=== PATIENT | male | born 1995 | race Caucasian/White ===

== ENCOUNTER 2017-05-30 16:19 | Emergency (ER) | payer OTHER ==
[~2017-05-30] VITALS: Ht 175.3 cm; Wt 68.0 kg
[2017-05-30 16:50] VITALS: BP 135/78
[2017-05-30] MEDS ORDERED: CYCL-331 PO (18:09)
--- NOTE | 2017-05-30 18:09 | PHYS DOC ---
Past History Past Medical History: No Pertinent History Past Surgical History: No Surgical History Alcohol Use: None Drug Use: None Adult General Chief Complaint Chief Complaint: KNEE SWELLING HPI HPI Patient is a 21 year old male who presents with complaint of 2 days of pain to the right knee. Patient states that he awoke with the symptoms yesterday and states that they became rapidly worse throughout the day yesterday. The patient was seen at [facility] and had a x-ray taken of the right knee which did not show any evidence of acute fracture. Patient denies any known injury to the knee. Patient states that he has been running but does not report any problems or inciting events during running brought on his pain. Patient rates his pain as 6 out of 10. Patient states the pain runs along the lateral aspect of the right knee up towards mid thigh. Patient states that he is having difficulty completely straightening out the knee secondary to pain. Review of Systems Review of Systems Constitutional: Denies fever or chills [] Eyes: Denies change in visual acuity, redness, or eye pain [] HENT: Denies nasal congestion or sore throat [] Musculoskeletal: Right knee pain[] Integument: Denies rash or skin lesions [] Neurologic: Denies headache, focal weakness or sensory changes [] Allergies Allergies Allergies Coded Allergies Type Severity Reaction Last Updated Verified No Known Drug Allergies 05/30/17 No Physical Exam Physical Exam Constitutional: Well developed, well nourished, no acute distress, non-toxic appearance. [] HENT: Normocephalic, atraumatic, bilateral external ears normal, oropharynx moist, no oral exudates, nose normal. [] Skin: Warm, dry, no erythema, no rash. [] Extremities: No obvious deformity to right knee, palpable tenderness and tightness along right iliotibial band, negative Linnea test, negative Aurelia test, full passive range of motion present. [] Neurologic: Alert and oriented X 3, normal motor function, normal sensory function, no focal deficits noted. [] Current Patient Data Vital Signs Vital Signs Date Time Temp Pulse Resp B/P (MAP) Pulse Ox O2 Delivery O2 Flow Rate FiO2 05/30/17 16:50 97.7 79 20 99 Room Air EKG EKG Not performed[] Radiology/Procedures Radiology/Procedures Not performed[] Course & Med Decision Making Course & Med Decision Making Pertinent Labs and Imaging studies reviewed. (See chart for details) Patient's symptoms appear consistent with iliotibial band syndrome. The patient states that he has physical therapy already scheduled for next week and will be attending. Patient is also taking naproxen which was prescribed to him yesterday. The patient will be given Flexeril to take at nighttime for added pain relief secondary to muscle tightness. Advise follow-up in one week with primary doctor. Patient also provided crutches in the emergency department to assist with ambulation. Advised return emergency department for any worsening symptoms. Patient was understanding and in agreement with treatment plan. Dragon Disclaimer Dragon Disclaimer This chart was dictated in whole or in part using Voice Recognition software in a busy, high-work load, and often noisy Emergency Department environment. It may contain unintended and wholly unrecognized errors or omissions. Departure Departure: Impression: Primary Impression: Iliotibial band syndrome Disposition: HOME, SELF-CARE Condition: STABLE Patient Instructions: Iliotibial Band Syndrome Additional Instructions: Follow-up in one week with your primary doctor if symptoms are not improving. Return to emergency department for any worsening symptoms. Scripts Cyclobenzaprine Hcl (CYCLOBENZAPRINE HCL) 10 Mg Tablet 1 TAB PO QHS Y for MUSCLE PAIN, #15 TAB Prov: ABBEY STOCKTON MD 05/30/17 Problem Qualifiers Primary Impression: Iliotibial band syndrome Laterality: right Qualified Codes: M76.31 - Iliotibial band syndrome, right leg ABBEY STOCKTON MD May 30, 2017 18:09
== END 2017-05-30 18:17 | disposition home or self-care (01) ==
LOC: ER 16:19
DX: M76.31 Iliotibial band syndrome, right leg (principal)
CPT/HCPCS: 99283

== ENCOUNTER 2017-08-30 04:24 | Inpatient (IN) | payer OTHER ==
[~2017-08-30] VITALS: Ht 172.7 cm; Wt 69.9 kg
[~2017-08-30 04:24] MED LIST: CYCL-331 PO
[2017-08-30] MEDS ORDERED: ONDANSETRON ODT 4 MG TAB.RAPDIS ONE (04:35)
[2017-08-30] MEDS ORDERED: IV NORMAL SALINE 1,000ML 1,000 ML IV SCH (04:39)
[2017-08-30] MEDS ORDERED: LORazepam 2 MG/ML VIAL IV ONE (04:45)
[2017-08-30] MEDS ORDERED: LOPERAMIDE 2 MG CAPSULE PO ONE (04:45)
[2017-08-30] MEDS ORDERED: ONDANSETRON PF 4 MG/2 ML VIAL. IV ONE (04:45)
[2017-08-30] MEDS ORDERED: 0.9 % SODIUM CHLORIDE 10 ML DISP.SYRIN. IV PRN (04:45)
--- NOTE | 2017-08-30 04:54 | PHYS DOC ---
Past History Past Medical History: No Pertinent History Past Surgical History: No Surgical History Smoking: Non-smoker Alcohol Use: None Drug Use: None Adult General Chief Complaint Chief Complaint: n/v/d HPI HPI This patient is a 21-year-old male otherwise healthy who began having an immediate reaction to eating some [place] wild wings or "" off. Patient felt nausea and vomiting since about 8:00 tonight. He's had too many episodes to count nonbilious nonbloody emesis, and loose liquidy stool. He's had crampy abdominal pain and some dizziness with the symptoms because he felt he has lost "" so much fluid. Patient denies any fevers, but has had some chills with his symptoms. He denies any sick contacts, travel outside the country, recent antibiotics raw food consumption. Patient works as a guard driver. He denies any blood in stool blood in his vomit denies any significant abdominal pain denies any drug use or trauma. Review of Systems Review of Systems Constitutional: Patient has had subjective fevers and chills Eyes: Denies change in visual acuity, redness, or eye pain [] HENT: Denies nasal congestion or sore throat [] Respiratory: Denies cough or shortness of breath [] Cardiovascular: No additional information not addressed in HPI [] GI: Denies abdominal pain, but he has had significant nausea vomiting and diarrhea without constipation : Denies dysuria or hematuria [] Musculoskeletal: Denies back pain or joint pain [] Integument: Denies rash or skin lesions [] Neurologic: Denies headache, focal weakness or sensory changes [] Endocrine: Denies polyuria or polydipsia [] All other systems were reviewed and found to be within normal limits, except as documented in this note. Current Medications Current Medications Current Medications Medications (Trade) Dose Ordered Sig/Tangela Start Time Stop Time Status Last Admin Dose Admin Loperamide HCl (Imodium) 4 mg 1X ONCE 08/30/17 04:45 08/30/17 04:46 UNV Ondansetron HCl (Zofran Odt) 4 mg STK-MED ONCE 08/30/17 04:35 08/30/17 04:36 DC Ondansetron HCl (Zofran) 4 mg 1X ONCE 08/30/17 04:45 08/30/17 04:46 UNV Sodium Chloride (Normal Saline Flush) 10 ml QSHIFT PRN 08/30/17 04:45 UNV Allergies Allergies Allergies Coded Allergies Type Severity Reaction Last Updated Verified No Known Drug Allergies 05/30/17 No Physical Exam Physical Exam Vital signs recorded on the chart within normal limits Constitutional: Well developed, well nourished, patient looks uncomfortable he is mildly tachypnea on my exam[] HENT: Normocephalic, atraumatic, bilateral external ears normal, oropharynx moist, no oral exudates, nose normal. [] Eyes: PERRLA, EOMI, conjunctiva normal, no discharge. [] Neck: Normal range of motion, no tenderness, supple, no stridor. [] Cardiovascular:Heart rate regular rhythm, no murmur [] Lungs & Thorax: Bilateral breath sounds clear to auscultation [] Abdomen: Hyperactive bowel sounds, no rebound guarding or Davis megaly, no specific Moore's or McBurney's point tenderness to palpation Skin: Warm, dry, no erythema, no rash he has some piloerection secondary to vomiting and chills. [] Back: No tenderness, no CVA tenderness. [] Extremities: No tenderness, no cyanosis, no clubbing, ROM intact, no edema. [] Neurologic: Alert and oriented X 3, normal motor function, normal sensory function, no focal deficits noted. [] Psychologic: Patient seems somewhat anxious but has normal judgment EKG EKG [] Radiology/Procedures Radiology/Procedures [CT abdomen pelvis: No acute surgical pathology per radiology report] Course & Med Decision Making Course & Med Decision Making Pertinent Labs and Imaging studies reviewed. (See chart for details) []Patient is nausea vomiting diarrhea following the consumption of what he calls ""bad food he was given fluids antiemetics and Imodium for symptoms and a small dose of Ativan for his anxiety. As abdomen is soft but we will complete a CMP to ensure that he has not have any signs of renal failure from volume depletion and ensure that his LITES are within normal limits Time is now 5:30 AM patient's CMP is returned it does demonstrate significant dehydration with a creatinine 1.7. Patient has an anion gap of 18 a glucose of 165 with a normal lipase and slightly elevated T bili. Because patient has not been able to urinate at this time I will give another liter fluids to him and repeat a CMP upon both fluids been given to ensure that his renal insufficiency is improved. Laboratory Tests Test 08/30/17 04:49 Sodium Level 141 mmol/L (136-145) Potassium Level 3.8 mmol/L (3.5-5.1) Chloride Level 102 mmol/L (98-107) Carbon Dioxide Level 21 mmol/L (21-32) Anion Gap 18 (6-14) H Blood Urea Nitrogen 18 mg/dL (8-26) Creatinine 1.7 mg/dL (0.7-1.3) H Estimated GFR (Cockcroft-Gault) 52.2 BUN/Creatinine Ratio 11 (6-20) Glucose Level 165 mg/dL (70-99) H Calcium Level 10.0 mg/dL (8.5-10.1) Total Bilirubin 1.5 mg/dL (0.2-1.0) H Aspartate Amino Transferase (AST) 23 U/L (15-37) Alanine Aminotransferase (ALT) 23 U/L (16-63) Alkaline Phosphatase 86 U/L (46-116) Total Protein 8.7 g/dL (6.4-8.2) H Albumin 4.8 g/dL (3.4-5.0) Albumin/Globulin Ratio 1.2 (1.0-1.7) Lipase 159 U/L (73-393) Care assumed at shift change. Patient remains tachycardic with continued nausea , diarrhea and nondescript lower abdominal pain. Noted to have elevated WBC with bandemia along with acute kidney injury. CT abdomen/pelvis ordered. No acute surgical findings noted to be present. Patient give additional IVF and pain medications. Will admit to hospitalist service for continued evaluation and supportive treatment. Courtesy bridge orders provided. Manuel Hayden. Micaela Disclaimer Micaela Disclaimer This electronic medical record was generated, in whole or in part, using a voice recognition dictation system. Departure Departure: Impression: Primary Impression: Nausea and vomiting Additional Impressions: Diarrhea Dehydration Renal insufficiency Disposition: 01 HOME, SELF-CARE Condition: IMPROVED Referrals: PCP,UNKNOWN (PCP) Patient Instructions: Dehydration, Adult, Diarrhea, Nausea and Vomiting Additional Instructions: discharge: I've spoken with the patient and/or caregivers. I've explained the patient's condition, diagnosis and treatment plan based on information available to me at this time. I've answered the patient's and/or caregivers questions and addressed any concerns. The patient and/or caregivers have a good understanding the patient's diagnosis, condition and treatment plan as can be expected at this point. Vital signs have been stabilized. The patient's condition is stable for discharge from the emergency department. The patient will pursue further outpatient evaluation with her primary care provider or other designated consulting physician as outlined in the discharge instructions. Patient and/or caregivers are agreeable to this plan of care and follow-up instructions have been explained in detail. The patient and/or caregivers have received these instructions in written format and expressed understanding of these discharge instructions. The patient and her caregivers are aware that if any significant change in condition or worsening of symptoms should prompt him to immediately return to this of the closest emergency department. If an emergent department is not readily available I would encourage him to call 911. Problem Qualifiers YVON LIM MD Aug 30, 2017 04:54 MANUEL HAYDEN DO Aug 30, 2017 07:43
[2017-08-30 05:18] LABS: ALBUMIN 4.8 g/dL (3.4-5.0); ALBUMIN/GLOBULIN RATIO 1.2 (1.0-1.7); CREATININE 1.7 mg/dL (0.7-1.3); GFR 52.2; POTASSIUM 3.8 mmol/L (3.5-5.1); TOTAL BILIRUBIN 1.5 mg/dL (0.2-1.0); TOTAL PROTEIN 8.7 g/dL (6.4-8.2)
[2017-08-30 05:27] LABS: BASO % 0 % (0-3); EOS % 0 % (0-3); HEMOGLOBIN 19.2 g/dL (13.0-17.5); LYMPH # 0.3 x10^3/uL (1.0-4.8); LYMPH % 2 % (24-48); MEAN CORPUSCULAR HEMOGLOBIN 31 pg (25-35); MEAN CORPUSCULAR HGB CONC 36 g/dL (31-37); MEAN CORPUSCULAR VOLUME 88 fL (79-100); NEUT % 91 % (31-73); PLATELET COUNT 273 x10^3/uL (140-400)
[2017-08-30 05:28] LABS: HEMATOCRIT 54.6 % (39.0-53.0); RED BLOOD COUNT 6.21 x10^6/uL (4.30-5.70); WHITE BLOOD COUNT 16.9 x10^3/uL (4.0-11.0)
[2017-08-30] MEDS ORDERED: ONDANSETRON ODT 4 MG TAB.RAPDIS PO ONE (05:30)
[2017-08-30] MEDS ORDERED: IV NORMAL SALINE 1,000ML 1,000 ML IV ONE (05:30)
[2017-08-30 05:31] LABS: BASO # 0.1 x10^3/uL (0.0-0.2); MONO # 1.1 x10^3/uL (0.0-1.1); MONO % 6 % (0-9); NEUT # 15.4 x10^3uL (1.8-7.7); RED CELL DISTRIBUTION WIDTH 12.3 % (11.5-14.5)
[2017-08-30 05:39] LABS: % BANDS 25 % (0-9); % LYMPHS 3 % (24-48); % METAS 1 % (0-0); % MONOS 6 % (0-10); % SEGS 65 % (35-66); PLT ESTIMATE ADEQUATE (ADEQUATE)
[2017-08-30 05:40] LABS: TOXIC GRANULATION SLIGHT; TOXIC VACUOLATION MOD
[2017-08-30] MEDS ORDERED: MORPHINE SULFATE 4 MG/ML DISP.SYRIN. IV ONE (06:30)
[2017-08-30] MEDS ORDERED: CONTRAST GIVEN MC PRN (07:00)
[2017-08-30] MEDS ORDERED: IOHEXOL 300 MG/ML 75 ML VIAL. IV ONE (07:00)
[2017-08-30 07:15] LABS: AMPHETAMINE/METHAMPHETAMINE NEG (NEG); BARBITURATES NEG (NEG); BENZODIAZEPINES NEG (NEG); CANNABINOIDS NEG (NEG); COCAINE NEG (NEG); METHADONE NEG (NEG); OPIATES NEG (NEG); PHENCYCLIDINE NEG (NEG)
[2017-08-30 07:21] LABS: BACTERIA,URINE 0 /HPF (0-FEW); BILIRUBIN,URINE SMALL (NEG); CLARITY,URINE HAZY; COLOR,URINE AMBER; GLUCOSE,URINE NEG (NEG); HYALINE CASTS, URINE FEW /HPF; NITRITE,URINE NEG (NEG); RBC,URINE 0 /HPF (0-2); UROBILINOGEN,URINE 0.2 mg/dL (0.2 mg/dL)
--- NOTE | 2017-08-30 07:55 | RAD ---
CT abdomen/pelvis with contrast 08/30/2017 Indication: Abdominal pain. Comparison: None available. Technique: Multiple axial CT images of the abdomen and pelvis were obtained after the intravenous administration of 65 cc Omnipaque 300. Coronal and sagittal reformats are provided. Findings: Lung bases are clear. Heart size is within normal limits. The liver, spleen, bilateral adrenal glands, pancreas and gallbladder are normal in appearance. The abdominal aorta is normal in course and caliber. There are no pathologically enlarged lymph nodes in the abdomen or pelvis. There is no free fluid or free intraperitoneal air. The kidneys enhance symmetrically. No suspicious renal mass is identified. There is no hydronephrosis. No pericolonic inflammatory changes are identified. A normal appendix is visualized without adjacent inflammatory changes. There is mild to compare for wall thickening involving jejunal bowel loops which may be secondary to under distention versus an enteritis. No mesenteric inflammatory changes are present. Urinary bladder is within normal limits given degree of distention. No suspicious pelvic masses are identified. There are no suspicious osseous lesions. Impression: 1. Mild circumferential wall thickening involving jejunal bowel loops. There are no adjacent mesenteric inflammatory changes. Consideration may be given for enteritis of infectious/inflammatory etiology versus underdistention. 2. A normal appendix is suspected. No adjacent inflammatory changes are identified. PQRS Compliance Statement: One or more of the following individualized dose reduction techniques were utilized for this examination: 1. Automated exposure control 2. Adjustment of the mA and/or kV according to patient size 3. Use of iterative reconstruction technique
[2017-08-30] MEDS ORDERED: IV DEXTROSE 5% - 0.9 % NACL 1,000 ML IV ONE (08:15)
[2017-08-30] MEDS ORDERED: ONDANSETRON PF 4 MG/2 ML VIAL. IV PRN (08:15)
[2017-08-30] MEDS: FAMOTIDINE 20 MG/2 ML VIAL IVP SCH ×2 (08:43→20:03)
[2017-08-30 09:25] VITALS: BP 124/55
[2017-08-30] MEDS ORDERED: MAGNESIUM SULFATE 2GM 50 ML IV ONE (09:30)
[2017-08-30] MEDS: MVI, ADULT NO.4 WITH VIT K 10 ML, FOLIC ACID 1 MG, THIAMINE 100 MG in IV DEXTROSE 5 %-0... IV SCH ×4 (09:47)
[2017-08-30] MEDS: CIPROFLOXACIN 400MG PREMIX 200 ML IV SCH ×2 (09:48→20:10)
[2017-08-30 11:25] VITALS: BP 110/53
[2017-08-30 18:00] VITALS: BP 127/62
[2017-08-30 19:43] VITALS: BP 117/63
[2017-08-30 23:54] VITALS: BP 119/73
[2017-08-31] MEDS ORDERED: IV NORMAL SALINE 1,000ML 1,000 ML IV SCH (03:30)
[2017-08-31 06:19] LABS: BASO % 1 % (0-3); EOS # 0.2 x10^3/uL (0.0-0.7); EOS % 2 % (0-3); HEMATOCRIT 39.5 % (39.0-53.0); HEMOGLOBIN 14.1 g/dL (13.0-17.5); LYMPH # 1.2 x10^3/uL (1.0-4.8); LYMPH % 18 % (24-48); MEAN CORPUSCULAR HEMOGLOBIN 32 pg (25-35); MEAN CORPUSCULAR HGB CONC 36 g/dL (31-37); MEAN CORPUSCULAR VOLUME 89 fL (79-100); MONO # 0.8 x10^3/uL (0.0-1.1); MONO % 13 % (0-9); NEUT # 4.4 x10^3uL (1.8-7.7); NEUT % 67 % (31-73); PLATELET COUNT 160 x10^3/uL (140-400); RED BLOOD COUNT 4.46 x10^6/uL (4.30-5.70); RED CELL DISTRIBUTION WIDTH 12.4 % (11.5-14.5); WHITE BLOOD COUNT 6.6 x10^3/uL (4.0-11.0)
[2017-08-31 06:21] VITALS: BP 116/59
[2017-08-31 06:22] LABS: ALBUMIN 2.9 g/dL (3.4-5.0); ALBUMIN/GLOBULIN RATIO 1.1 (1.0-1.7); CALCIUM 8.3 mg/dL (8.5-10.1); CREATININE 1.3 mg/dL (0.7-1.3); GFR 71.1; MAGNESIUM 1.8 mg/dL (1.8-2.4); POTASSIUM 4.4 mmol/L (3.5-5.1); TOTAL BILIRUBIN 0.9 mg/dL (0.2-1.0); TOTAL PROTEIN 5.5 g/dL (6.4-8.2)
[2017-08-31] MEDS: FAMOTIDINE 20 MG/2 ML VIAL IVP SCH ×2 (08:39→20:52)
[2017-08-31] MEDS: CIPROFLOXACIN 400MG PREMIX 200 ML IV SCH ×2 (08:39→20:52)
--- NOTE | 2017-08-31 11:10 | PDOC ---
SUBJECTIVE: Please note that a full history and physical was done on 1231 and evidently is not on the record because of the holiday. 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 He presented to the emergency room and was found to be severely dehydrated, with acute kidney injury , with hypomagnesemia, and picture of sepsis. With leukocytosis with a left shift with bandemia. His CAT scan has a picture of some type of infectious or inflammatory enteritis. He has been treated with IV Cipro. His symptoms have improved. Stomach is still a little queasy. He did develop a fever of 1 200.3 yesterday evening. OBJECTIVE: Problems: Problems Medical Problems: (1) Dehydration Status: Acute (2) Diarrhea Status: Acute (3) Nausea and vomiting Status: Acute (4) ACUTE KIDNEY INJURY SECONDARY TO DEHYDRATION (5) SEPSIS WITH GASTROENTERITIS (6) HYPOMAGNESEMIA Status: Acute Vital Signs: Vital Signs Date Time Temp Pulse Resp B/P (MAP) Pulse Ox O2 Delivery O2 Flow Rate FiO2 08/31/17 08:00 Room Air 08/31/17 06:21 97.8 72 20 116/59 (78) 98 I & O Intake and Output 08/31/17 07:00 Intake Total 1120 ml Output Total 501 ml Balance 619 ml Intake Oral 120 ml IV Total 1000 ml Output Stool Total 1 ml Emesis 500 ml # Voids 5 Labs: Laboratory Tests Test 08/30/17 04:49 08/30/17 06:09 08/30/17 10:26 08/30/17 11:36 White Blood Count 16.9 x10^3/uL (4.0-11.0) Red Blood Count 6.21 x10^6/uL (4.30-5.70) Hemoglobin 19.2 g/dL (13.0-17.5) Hematocrit 54.6 % (39.0-53.0) Mean Corpuscular Volume 88 fL (79-100) Mean Corpuscular Hemoglobin 31 pg (25-35) Mean Corpuscular Hemoglobin Concent 36 g/dL (31-37) Red Cell Distribution Width 12.3 % (11.5-14.5) Platelet Count 273 x10^3/uL (140-400) Neutrophils (%) (Auto) 91 % (31-73) Lymphocytes (%) (Auto) 2 % (24-48) Monocytes (%) (Auto) 6 % (0-9) Eosinophils (%) (Auto) 0 % (0-3) Basophils (%) (Auto) 0 % (0-3) Neutrophils # (Auto) 15.4 x10^3uL (1.8-7.7) Lymphocytes # (Auto) 0.3 x10^3/uL (1.0-4.8) Monocytes # (Auto) 1.1 x10^3/uL (0.0-1.1) Eosinophils # (Auto) 0.0 x10^3/uL (0.0-0.7) Basophils # (Auto) 0.1 x10^3/uL (0.0-0.2) Segmented Neutrophils % 65 % (35-66) Band Neutrophils % 25 % (0-9) Lymphocytes % 3 % (24-48) Monocytes % 6 % (0-10) Metamyelocytes % 1 % (0-0) Toxic Granulation Slight Toxic Vacuolation Mod Dohle Bodies Few Platelet Estimate Adequate (ADEQUATE) Sodium Level 141 mmol/L (136-145) Potassium Level 3.8 mmol/L (3.5-5.1) Chloride Level 102 mmol/L (98-107) Carbon Dioxide Level 21 mmol/L (21-32) Anion Gap 18 (6-14) Blood Urea Nitrogen 18 mg/dL (8-26) Creatinine 1.7 mg/dL (0.7-1.3) Estimated GFR (Cockcroft-Gault) 52.2 BUN/Creatinine Ratio 11 (6-20) Glucose Level 165 mg/dL (70-99) Calcium Level 10.0 mg/dL (8.5-10.1) Magnesium Level 1.5 mg/dL (1.8-2.4) Total Bilirubin 1.5 mg/dL (0.2-1.0) Aspartate Amino Transf (AST/SGOT) 23 U/L (15-37) Alanine Aminotransferase (ALT/SGPT) 23 U/L (16-63) Alkaline Phosphatase 86 U/L (46-116) Creatine Kinase 100 U/L (39-308) Total Protein 8.7 g/dL (6.4-8.2) Albumin 4.8 g/dL (3.4-5.0) Albumin/Globulin Ratio 1.2 (1.0-1.7) Lipase 159 U/L (73-393) Urine Collection Type Unknown Urine Color Sindhu Urine Clarity Hazy Urine pH 6.0 Urine Specific Cocoa 1.020 Urine Protein 30 mg/dl (NEG-TRACE) Urine Glucose (UA) Neg mg/dL (NEG) Urine Ketones (Stick) 40 mg/dL (NEG) Urine Blood Neg (NEG) Urine Nitrite Neg (NEG) Urine Bilirubin Small (NEG) Urine Urobilinogen Dipstick 0.2 mg/dL (0.2 mg/dL) Urine Leukocyte Esterase Neg (NEG) Urine RBC 0 /HPF (0-2) Urine WBC 1-4 /HPF (0-4) Urine Squamous Epithelial Cells None /LPF Urine Transitional Epithelial Cells Occ /LPF Urine Bacteria 0 /HPF (0-FEW) Urine Hyaline Casts Few /HPF Urine Mucus Marked /LPF Urine Opiates Screen Neg (NEG) Urine Methadone Screen Neg (NEG) Urine Barbiturates Neg (NEG) Urine Phencyclidine Screen Neg (NEG) Urine Amphetamine/Methamphetamine Neg (NEG) Urine Benzodiazepines Screen Neg (NEG) Urine Cocaine Screen Neg (NEG) Urine Cannabinoids Screen Neg (NEG) Urine Ethyl Alcohol Neg (NEG) Nasal Screen MRSA (PCR) Negative (Negative) Lactic Acid Level 2.0 mmol/L (0.4-2.0) Test 08/31/17 06:00 White Blood Count 6.6 x10^3/uL (4.0-11.0) Red Blood Count 4.46 x10^6/uL (4.30-5.70) Hemoglobin 14.1 g/dL (13.0-17.5) Hematocrit 39.5 % (39.0-53.0) Mean Corpuscular Volume 89 fL (79-100) Mean Corpuscular Hemoglobin 32 pg (25-35) Mean Corpuscular Hemoglobin Concent 36 g/dL (31-37) Red Cell Distribution Width 12.4 % (11.5-14.5) Platelet Count 160 x10^3/uL (140-400) Neutrophils (%) (Auto) 67 % (31-73) Lymphocytes (%) (Auto) 18 % (24-48) Monocytes (%) (Auto) 13 % (0-9) Eosinophils (%) (Auto) 2 % (0-3) Basophils (%) (Auto) 1 % (0-3) Neutrophils # (Auto) 4.4 x10^3uL (1.8-7.7) Lymphocytes # (Auto) 1.2 x10^3/uL (1.0-4.8) Monocytes # (Auto) 0.8 x10^3/uL (0.0-1.1) Eosinophils # (Auto) 0.2 x10^3/uL (0.0-0.7) Basophils # (Auto) 0.0 x10^3/uL (0.0-0.2) Sodium Level 141 mmol/L (136-145) Potassium Level 4.4 mmol/L (3.5-5.1) Chloride Level 108 mmol/L (98-107) Carbon Dioxide Level 26 mmol/L (21-32) Anion Gap 7 (6-14) Blood Urea Nitrogen 13 mg/dL (8-26) Creatinine 1.3 mg/dL (0.7-1.3) Estimated GFR (Cockcroft-Gault) 71.1 BUN/Creatinine Ratio 10 (6-20) Glucose Level 94 mg/dL (70-99) Calcium Level 8.3 mg/dL (8.5-10.1) Magnesium Level 1.8 mg/dL (1.8-2.4) Total Bilirubin 0.9 mg/dL (0.2-1.0) Aspartate Amino Transf (AST/SGOT) 17 U/L (15-37) Alanine Aminotransferase (ALT/SGPT) 16 U/L (16-63) Alkaline Phosphatase 42 U/L (46-116) Total Protein 5.5 g/dL (6.4-8.2) Albumin 2.9 g/dL (3.4-5.0) Albumin/Globulin Ratio 1.1 (1.0-1.7) Physical Exam: Patient much more alert this morning. This tongue is moist. Neck was supple. Lungs are clear to auscultation. Cardiovascular was a regular rhythm and rate without murmur. Abdomen was soft, bowel sounds are positive, tenderness is decreased significantly compared to yesterday, extremities without edema, ASSESSMENT: Please see problem list PLAN: As of the fever will go ahead and check an influenza. He did have the flu shot. Continue to advance his diet as tolerated. Continue IV Cipro. And hopefully will be able to be discharged tomorrow. MAURILIO LARSON DO Aug 31, 2017 11:10
[2017-08-31] MEDS: MVI, ADULT NO.4 WITH VIT K 10 ML, FOLIC ACID 1 MG, THIAMINE 100 MG in IV DEXTROSE 5 %-0... IV SCH ×4 (11:26)
[2017-08-31 12:23] VITALS: BP 109/69
[2017-08-31 15:37] VITALS: BP 127/73
[2017-08-31 19:51] VITALS: BP 106/67
[2017-08-31] MEDS: LACTOBACILLUS RHAMNOSUS GG 1 CAPSULE. PO SCH (20:51)
[2017-08-31 22:34] VITALS: BP 114/71
--- NOTE | 2017-09-01 00:27 | HP ---
ADMIT DATE: 08/30/2017 REASON FOR ADMISSION: Nausea, vomiting, diarrhea, dehydration. HISTORY OF PRESENT ILLNESS: This is a 21-year-old male who ate some [place] wild wings yesterday evening. He went home. After about an hour, he felt nauseated and started throwing up at about 08:00 p.m. last night, threw up so many times and had liquidy stool with crampy abdominal pain. He became dizzy and felt dehydrated with some chills and came to the Emergency Room. He did get flu shot this year. He has not recently been on antibiotics. PAST MEDICAL HISTORY: Negative. PAST SURGICAL HISTORY: He had a finger operated on. FAMILY HISTORY: Aunt of liver cancer. 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 REVIEW OF SYSTEMS: As per HPI, otherwise, was in good health. OBJECTIVE: VITAL SIGNS: Temperature 99.8, pulse 101, blood pressure 124/55, O2 sat 98% on room air. HEENT: Ears, normal. Eyes were clear. Nose patent. Throat clear. Tongue, slightly moist. NECK: Supple. LUNGS: Clear. CARDIOVASCULAR: Regular rhythm and rate. ABDOMEN: Soft. Bowel sounds are positive. Mild diffuse tenderness. EXTREMITIES: Without edema. LABORATORY DATA: White blood cell count 16.9, hemoglobin 19.2, hematocrit 54.6, 25 bands. Chemistry: Magnesium 1.5. Creatinine 1.7 with anion gap of 18. CAT scan of the abdomen and pelvis showing mild wall thickening involving the jejunum suspicious for some enteritis or inflammation. ASSESSMENT: 1. Acute onset of nausea, vomiting, diarrhea after eating buffalo wild wings. 2. Severe dehydration with hemoconcentration. 3. Leukocytosis with bandemia. 4. Hypomagnesemia. PLAN: Cipro IV. Aggressive hydration, advance diet as tolerated. Some stools have been sent for culture. Should check a lactic acid as well. We will definitely keep until tomorrow. MAURILIO LARSON DO DR: JUSTINE/yoselin JOB#: [id number] / [id number]
[2017-09-01 05:10] VITALS: BP 127/66
[2017-09-01 06:27] LABS: BASO % 1 % (0-3); EOS # 0.4 x10^3/uL (0.0-0.7); EOS % 6 % (0-3); HEMATOCRIT 40.5 % (39.0-53.0); HEMOGLOBIN 14.6 g/dL (13.0-17.5); LYMPH # 1.7 x10^3/uL (1.0-4.8); LYMPH % 27 % (24-48); MEAN CORPUSCULAR HEMOGLOBIN 32 pg (25-35); MEAN CORPUSCULAR HGB CONC 36 g/dL (31-37); MEAN CORPUSCULAR VOLUME 88 fL (79-100); MONO # 0.9 x10^3/uL (0.0-1.1); MONO % 15 % (0-9); NEUT # 3.3 x10^3uL (1.8-7.7); NEUT % 52 % (31-73); PLATELET COUNT 191 x10^3/uL (140-400); RED BLOOD COUNT 4.62 x10^6/uL (4.30-5.70); RED CELL DISTRIBUTION WIDTH 12.5 % (11.5-14.5); WHITE BLOOD COUNT 6.3 x10^3/uL (4.0-11.0)
[2017-09-01 06:39] LABS: ALBUMIN 3.3 g/dL (3.4-5.0); ALBUMIN/GLOBULIN RATIO 1.1 (1.0-1.7); CALCIUM 8.7 mg/dL (8.5-10.1); CREATININE 0.9 mg/dL (0.7-1.3); GFR 108.7; MAGNESIUM 1.9 mg/dL (1.8-2.4); TOTAL BILIRUBIN 0.5 mg/dL (0.2-1.0); TOTAL PROTEIN 6.4 g/dL (6.4-8.2)
[2017-09-01] MEDS ORDERED: CIPR500T94 PO (07:13)
[2017-09-01] MEDS ORDERED: FAMO20TA5 PO (07:13)
[2017-09-01] MEDS ORDERED: LACT1CAP19 PO (07:13)
[2017-09-01] MEDS ORDERED: FAMOTIDINE 20 MG TABLET PO SCH (08:00)
[2017-09-01] MEDS: LACTOBACILLUS RHAMNOSUS GG 1 CAPSULE. PO SCH (08:13)
[2017-09-01] MEDS ORDERED: CIPROFLOXACIN HCL 500 MG TABLET PO SCH (09:00)
--- NOTE | 2017-09-02 14:30 | PDOC3 ---
Discharge Summary Visit Information Date of Admission: Aug 30, 2017 Date of Discharge: Sep 01, 2017 Final Diagnosis Problems Medical Problems: (1) Dehydration Status: Acute (2) Diarrhea Status: Acute (3) Nausea and vomiting Status: Acute (4) Renal insufficiency Status: Acute ms: Problems Medical Problems: (1) Dehydration Status: Acute (2) Diarrhea Status: Acute (3) Nausea and vomiting Status: Acute (4) ACUTE KIDNEY INJURY SECONDARY TO DEHYDRATION (5) SEPSIS WITH GASTROENTERITIS (6) HYPOMAGNESEMIA Status: Acute Vital Signs: Problems: Brief Hospital Course Allergies Allergies Coded Allergies Type Severity Reaction Last Updated Verified No Known Drug Allergies 05/30/17 No Vital Signs Vital Signs Date Time Temp Pulse Resp B/P (MAP) Pulse Ox O2 Delivery O2 Flow Rate FiO2 09/01/17 08:00 Room Air 09/01/17 05:10 97.9 83 20 127/66 (86) 99 Lab Results Laboratory Tests Test 09/01/17 05:53 White Blood Count 6.3 x10^3/uL (4.0-11.0) Red Blood Count 4.62 x10^6/uL (4.30-5.70) Hemoglobin 14.6 g/dL (13.0-17.5) Hematocrit 40.5 % (39.0-53.0) Mean Corpuscular Volume 88 fL (79-100) Mean Corpuscular Hemoglobin 32 pg (25-35) Mean Corpuscular Hemoglobin Concent 36 g/dL (31-37) Red Cell Distribution Width 12.5 % (11.5-14.5) Platelet Count 191 x10^3/uL (140-400) Neutrophils (%) (Auto) 52 % (31-73) Lymphocytes (%) (Auto) 27 % (24-48) Monocytes (%) (Auto) 15 % (0-9) Eosinophils (%) (Auto) 6 % (0-3) Basophils (%) (Auto) 1 % (0-3) Neutrophils # (Auto) 3.3 x10^3uL (1.8-7.7) Lymphocytes # (Auto) 1.7 x10^3/uL (1.0-4.8) Monocytes # (Auto) 0.9 x10^3/uL (0.0-1.1) Eosinophils # (Auto) 0.4 x10^3/uL (0.0-0.7) Basophils # (Auto) 0.0 x10^3/uL (0.0-0.2) Sodium Level 141 mmol/L (136-145) Potassium Level 4.0 mmol/L (3.5-5.1) Chloride Level 107 mmol/L (98-107) Carbon Dioxide Level 28 mmol/L (21-32) Anion Gap 6 (6-14) Blood Urea Nitrogen 9 mg/dL (8-26) Creatinine 0.9 mg/dL (0.7-1.3) Estimated GFR (Cockcroft-Gault) 108.7 BUN/Creatinine Ratio 10 (6-20) Glucose Level 96 mg/dL (70-99) Calcium Level 8.7 mg/dL (8.5-10.1) Magnesium Level 1.9 mg/dL (1.8-2.4) Total Bilirubin 0.5 mg/dL (0.2-1.0) Aspartate Amino Transf (AST/SGOT) 17 U/L (15-37) Alanine Aminotransferase (ALT/SGPT) 17 U/L (16-63) Alkaline Phosphatase 48 U/L (46-116) Total Protein 6.4 g/dL (6.4-8.2) Albumin 3.3 g/dL (3.4-5.0) Albumin/Globulin Ratio 1.1 (1.0-1.7) Brief Hospital Course Mr. Rangel is a 21 old [sex] who presented with [ ] HISTORY OF PRESENT ILLNESS: This is a 21-year-old male who ate some [employer] wild wings yesterday evening. He went home. After about an hour, he felt nauseated and started throwing up at about 08:00 p.m. last night, threw up so many times and had liquidy stool with crampy abdominal pain. He became dizzy and felt dehydrated with some chills and came to the Emergency Room. He did get flu shot this year. He has not recently been on antibiotics.HE WAS FOUND TO BE EXTREMELY DEHYDRATED AND WITH AND NKECHI. HE WAS AGRESSIVELY HYDRATED AND PLACED ON IV CIPRO DUE TO ENTERITIS ON HIS CT SCAN. HE HAD AN UNREMARKABLE RECOVERY AND WAS READY FOR DISCHARGE ON 09/01. Discharge Information Condition at Discharge: Improved Disposition/Orders: D/C to Home Dischare Medications Current Medications Ondansetron HCl (Zofran Odt) 4 mg STK-MED ONCE .ROUTE ; Start 08/30/17 at 04:35 ; Stop 08/30/17 at 04:36; Status DC Sodium Chloride 1,000 ml @ 1,000 mls/hr Q1H IV Last administered on 05:05; Start 08/30/17 at 04:39; Stop 08/30/17 at 05:38; Status DC Sodium Chloride (Normal Saline Flush) 10 ml QSHIFT PRN IV AFTER MEDS AND BLOOD DRAWS Last administered on 08/30/17 05:02; Start 08/30/17 at 04:45; Stop 09/01 at 09:42; Status DC Ondansetron HCl (Zofran) 4 mg 1X ONCE IV Last administered on 08/30/17 05:01 ; Start 08/30/17 at 04:45; Stop 08/30/17 at 05:13; Status DC Loperamide HCl (Imodium) 4 mg 1X ONCE PO Last administered on 08/30/17 05:01 ; Start 08/30/17 at 04:45; Stop 08/30/17 at 05:12; Status DC Lorazepam (Ativan) 1 mg 1X ONCE IV Last administered on 08/30/17 05:01; Start 08/30/17 at 04:45; Stop 08/30/17 at 05:12; Status DC Ondansetron HCl (Zofran Odt) 4 mg 1X ONCE PO Last administered on 08/30/17 04:36; Start 08/30/17 at 05:30; Stop 08/30/17 at 05:42; Status DC Sodium Chloride 1,000 ml @ 1,000 mls/hr 1X ONCE IV Last administered on 08/30 06:49; Start 08/30/17 at 05:30; Stop 08/30/17 at 06:30; Status DC Morphine Sulfate (Morphine 4mg Syringe) 4 mg 1X ONCE IV Last administered on 08/30/17 06:45; Start 08/30/17 at 06:30; Stop 08/30/17 at 06:56; Status DC Iohexol (Omnipaque 300 Mg/ml) 75 ml 1X ONCE IV Last administered on 07:12; Start 08/30/17 at 07:00; Stop 08/30/17 at 07:01; Status DC Info (Do NOT chart on this entry -- for MONITORING) 1 each PRN DAILY PRN MC SEE COMMENTS; Start 08/30/17 at 07:00; Stop 09/01/17 at 06:59; Status DC Ondansetron HCl (Zofran) 4 mg PRN Q4HRS PRN IV NAUSEA/VOMITING Last administered on 08/30/17t 11:57; Start 08/30/17 at 08:15; Stop 08/31/17 at 08: 14; Status DC Fentanyl Citrate (Fentanyl 2ml Vial) 50 mcg PRN Q2HR PRN IV PAIN; Start at 08:15; Stop 08/31/17 at 08:14; Status DC Famotidine (Pepcid Vial) 20 mg Q12HR IVP Last administered on 08/31/17at 20:52; Start 08/30/17 at 09:00; Stop 09/01/17 at 07:02; Status DC Dextrose/Sodium Chloride 1,000 ml @ 200 mls/hr 1X ONCE IV ; Start 08/30/17 at 08:15; Stop 08/30/17 at 13:14; Status DC Magnesium Sulfate 50 ml @ 25 mls/hr 1X ONCE IV Last administered on t 09:47; Start 08/30/17 at 09:30; Stop 08/30/17 at 11:29; Status DC Ciprofloxacin Lactate 200 ml @ 200 mls/hr Q12HR IV Last administered on at 20:52; Start 08/30/17 at 10:00; Stop 09/01/17 at 07:02; Status DC Multivitamins/ Minerals 10 ml/ Folic Acid 1 mg/ Thiamine HCl 100 mg/Dextrose/ Sodium Chloride 1,011.2 ml @ 150 mls/ hr DAILY IV Last administered on at 11:26; Start 08/30/17 at 10:00; Stop 09/01/17 at 09:42; Status DC Sodium Chloride 1,000 ml @ 150 mls/hr Q6H40M IV Last administered on 08/31/17at 03:30; Start 08/31/17 at 03:30; Stop 08/31/17 at 08:16; Status DC Lactobacillus Rhamnosus (Culturelle) 1 cap BID PO Last administered on at 08:13; Start 08/31/17 at 21:00; Stop 09/01/17 at 09:42; Status DC Ciprofloxacin (Cipro) 500 mg BID PO Last administered on 09/01/17at 08:13; Start 09/01/17 at 09:00; Stop 09/01/17 at 09:42; Status DC Famotidine (Pepcid) 20 mg DAILY08 PO Last administered on 09/01/17at 08:13; Start 09/01/17 at 08:00; Stop 09/01/17 at 09:42; Status DC Active Scripts Active Famotidine 20 Mg Tablet 20 Mg PO DAILY08 7 Days Culturelle (Lactobacillus Rhamnosus Gg) 1 Each Cap.sprink 1 Cap PO BID 7 Days Cipro (Ciprofloxacin Hcl) 500 Mg Tablet 500 Mg PO BID 7 Days Cyclobenzaprine Hcl 10 Mg Tablet 1 Tab PO QHS PRN MAURILIO LARSON DO Sep 02, 2017 14:30
== END 2017-09-01 09:37 | disposition home or self-care (01) | DRG 871 ==
LOC: ER 04:24 → 1 SOUTH 08:25 → ICU 09:10 → 1 SOUTH 17:13
PROVIDERS: ADMIT Family Medicine; ATTEND Family Medicine
DX: A41.9 Sepsis, unspecified organism (principal); N17.0 Acute kidney failure with tubular necrosis; E83.42 Hypomagnesemia; E86.0 Dehydration; K52.9 Noninfective gastroenteritis and colitis, unspecified; Z80.0 Family history of malignant neoplasm of digestive organs
CPT/HCPCS: 36415; 74177; 80053; 80307; 81001; 82550; 83605; 83690; 83735; 85007; 85025; 87641; 96361; 96374; 96375; J0744; J2060; J2270; J2405; J3475; Q0162; Q9967; S0028; 99285-25; G0479; J7030

== ENCOUNTER 2017-10-24 23:09 | Emergency (ER) | payer OTHER ==
[~2017-10-24] VITALS: Ht 172.7 cm; Wt 69.9 kg
[~2017-10-24 23:09] MED LIST changes: +CIPR500T94 PO; +FAMO20TA5 PO; +LACT1CAP19 PO
[2017-10-25 00:23] LABS: INFLUENZA A PATIENT NEGATIVE (NEGATIVE); INFLUENZA B PATIENT NEGATIVE (NEGATIVE)
[2017-10-25] MEDS ORDERED: PRED20TA PO (00:40)
[2017-10-25] MEDS ORDERED: AZIT250T PO (00:40)
--- NOTE | 2017-10-25 00:41 | PHYS DOC ---
General Chief Complaint: COUGH Stated Complaint: COUGH,SORE THROAT Time Seen by MD: 23:10 Source: patient Exam Limitations: no limitations Problems: History of Present Illness Initial Comments Patient is a 21-year-old male who comes in the ED complaining of cough and scratchy throat. Patient states for the past 5-7 days he's had clear nasal drainage, nonproductive cough and mild scratchy throat. Denies fever chills sweats or body aches no nausea or vomiting. Denies history of asthma or allergies he does smoke less than one pack of cigarettes daily. He's been taking DayQuil without relief and on arrival vital signs are stable. Influenza swab obtained prior to my seeing the patient. Timing/Duration: 1 week Severity: moderate Modifying Factors: worse with movement, improves with rest Associated Symptoms: cough, malaise, shortness of breath Allergies: Coded Allergies: No Known Drug Allergies (Unverified , 05/30/17) Past Medical History Medical History: no pertinent history Surgical History: no surgical history Social History Smoker: cigarettes Alcohol: none Drugs: none Review of Systems Constitutional: denies chills, denies diaphoresis, denies fever, malaise Respiratory: cough, denies orthopnea, shortness of breath, wheezing Cardiovascular: denies chest pain, denies palpitations, denies syncope Gastrointestinal: denies diarrhea, denies nausea, denies vomiting Musculoskeletal: denies back pain, denies joint swelling, denies neck pain Psychiatric/Neurological: denies headache, denies numbness, denies paresthesia Physical Exam General Appearance: WD/WN, no apparent distress Ear, Nose, Throat: hearing grossly normal, normal ENT inspection (clear nasal discharge), normal pharynx Neck: non-tender, supple Respiratory: other (slightly decreased breath sounds bilaterally with wheezing no respiratory distress chest is nontender) Cardiovascular: normal peripheral pulses, regular rate, rhythm Extremities: non-tender, normal inspection 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 Patient is constantly coughing throughout ED course. We will treat for bronchospasm and due to duration of symptoms had antimicrobial coverage. Discussed smoking cessation patient's questions were answered and he expressed agreement and understanding of treatment plan. Departure Time of Disposition: 00:40 Disposition: 01 HOME, SELF-CARE Diagnosis: Bronchitis with bronchospasm Condition: GOOD Patient Instructions: Acute Bronchitis, [id number] Additional Instructions: Activity as tolerated. Aggressive hydration with Gatorade and water. [id number] Tylenol and ibuprofen as needed. Use albuterol inhaler 2 puffs every 4 hours and as needed. Prescription: Prednisone, Zithromax Follow-up with in 5 days if no improvement. Return to ED with new or changing symptoms. NICKOLAS RIVERA DO Oct 25, 2017 00:41
[2017-10-25] MEDS ORDERED: predniSONE 10 MG TABLET PO ONE (00:45)
[2017-10-25] MEDS ORDERED: AZITHROMYCIN 250 MG TABLET. PO ONE (00:45)
[2017-10-25] MEDS ORDERED: ALBUTEROL SULFATE 8GM INHALER. INH ONE (00:45)
== END 2017-10-25 00:55 | disposition home or self-care (01) ==
LOC: ER 23:09
DX: J40 Bronchitis, not specified as acute or chronic (principal); J98.01 Acute bronchospasm; F17.210 Nicotine dependence, cigarettes, uncomplicated
CPT/HCPCS: 87804; 94640; 99284; J0456; J7512; J7613

== ENCOUNTER 2018-10-27 21:14 | Emergency (ER) | payer OTHER ==
[~2018-10-27] VITALS: Ht 172.7 cm; Wt 72.3 kg
[~2018-10-27 21:14] MED LIST changes: +AZIT250T PO; +PRED20TA PO
[2018-10-27] MEDS ORDERED: IV NORMAL SALINE 1,000ML 1,000 ML IV ONE ×2 (22:00)
[2018-10-27] MEDS ORDERED: ONDANSETRON PF 4 MG/2 ML VIAL. IV ONE ×2 (22:00)
[2018-10-27 22:03] LABS: BASO % 0 % (0-3); EOS % 0 % (0-3); HEMATOCRIT 50.9 % (39.0-53.0); HEMOGLOBIN 17.9 g/dL (13.0-17.5); LYMPH # 0.4 x10^3/uL (1.0-4.8); LYMPH % 3 % (24-48); MEAN CORPUSCULAR HEMOGLOBIN 31 pg (25-35); MEAN CORPUSCULAR HGB CONC 35 g/dL (31-37); MEAN CORPUSCULAR VOLUME 88 fL (79-100); MONO % 7 % (0-9); NEUT # 13.2 x10^3uL (1.8-7.7); NEUT % 90 % (31-73); PLATELET COUNT 260 x10^3/uL (140-400); RED BLOOD COUNT 5.75 x10^6/uL (4.30-5.70); RED CELL DISTRIBUTION WIDTH 12.6 % (11.5-14.5); WHITE BLOOD COUNT 14.6 x10^3/uL (4.0-11.0)
[2018-10-27 22:07] LABS: ALBUMIN 5.1 g/dL (3.4-5.0); ALBUMIN/GLOBULIN RATIO 1.4 (1.0-1.7); CALCIUM 9.5 mg/dL (8.5-10.1); CREATININE 1.1 mg/dL (0.7-1.3); GFR 85.3; POTASSIUM 3.5 mmol/L (3.5-5.1); TOTAL PROTEIN 8.8 g/dL (6.4-8.2)
[2018-10-27 22:10] VITALS: BP 134/72
[2018-10-27] MEDS ORDERED: ONDA4TAB12 PO (22:16)
--- NOTE | 2018-10-27 22:17 | PHYS DOC ---
Past History Past Medical History: No Pertinent History Past Surgical History: Other Smoking: Non-smoker Alcohol Use: None Drug Use: None Adult General Chief Complaint Chief Complaint: NAUSEA/VOMITING/DIARRHEA HPI HPI 22-year-old male presents with vomiting and diarrhea for one day. The patient states that this started suddenly earlier today. He has had several episodes of both. He has not been able to keep down anything. He denies fever or chills. There've been other people around him that have been sick with similar symptoms recently. Review of Systems Review of Systems Constitutional: Denies fever or chills [] Eyes: Denies change in visual acuity, redness, or eye pain [] HENT: Denies nasal congestion or sore throat [] Respiratory: Denies cough or shortness of breath [] Cardiovascular: No additional information not addressed in HPI [] GI: Nausea, vomiting, diarrhea.[] : Denies dysuria or hematuria [] Musculoskeletal: Denies back pain or joint pain [] Integument: Denies rash or skin lesions [] Neurologic: Denies headache, focal weakness or sensory changes [] Endocrine: Denies polyuria or polydipsia [] All other systems were reviewed and found to be within normal limits, except as documented in this note. Current Medications Current Medications Current Medications Medications (Trade) Dose Ordered Sig/Tangela Start Time Stop Time Status Last Admin Dose Admin Ondansetron HCl (Zofran) 4 mg 1X ONCE 10/27/18 22:00 10/27/18 22:02 DC Sodium Chloride 1,000 ml @ 1,000 mls/hr 1X ONCE 10/27/18 22:00 10/27/18 22:59 Allergies Allergies Allergies Coded Allergies Type Severity Reaction Last Updated Verified No Known Drug Allergies 05/30/17 No Physical Exam Physical Exam Constitutional: Well developed, well nourished, no acute distress, non-toxic appearance. [] HENT: Normocephalic, atraumatic, bilateral external ears normal, oropharynx dry , no oral exudates, nose normal. [] Eyes: PERRLA, EOMI, conjunctiva normal, no discharge. [] Neck: Normal range of motion, no tenderness, supple, no stridor. [] Cardiovascular:Heart rate regular rhythm, no murmur [] Lungs & Thorax: Bilateral breath sounds clear to auscultation [] Abdomen: Bowel sounds normal, soft, no tenderness, no masses, no pulsatile masses. [] Skin: Warm, dry, no erythema, no rash. [] Back: No tenderness, no CVA tenderness. [] Extremities: No tenderness, no cyanosis, no clubbing, ROM intact, no edema. [] Neurologic: Alert and oriented X 3, normal motor function, normal sensory function, no focal deficits noted. [] Psychologic: Affect normal, judgement normal, mood normal. [] Current Patient Data Lab Results Laboratory Tests Test 10/27/18 21:37 White Blood Count 14.6 x10^3/uL (4.0-11.0) H Red Blood Count 5.75 x10^6/uL (4.30-5.70) H Hemoglobin 17.9 g/dL (13.0-17.5) H Hematocrit 50.9 % (39.0-53.0) Mean Corpuscular Volume 88 fL (79-100) Mean Corpuscular Hemoglobin 31 pg (25-35) Mean Corpuscular Hemoglobin Concent 35 g/dL (31-37) Red Cell Distribution Width 12.6 % (11.5-14.5) Platelet Count 260 x10^3/uL (140-400) Neutrophils (%) (Auto) 90 % (31-73) H Lymphocytes (%) (Auto) 3 % (24-48) L Monocytes (%) (Auto) 7 % (0-9) Eosinophils (%) (Auto) 0 % (0-3) Basophils (%) (Auto) 0 % (0-3) Neutrophils # (Auto) 13.2 x10^3uL (1.8-7.7) H Lymphocytes # (Auto) 0.4 x10^3/uL (1.0-4.8) L Monocytes # (Auto) 1.0 x10^3/uL (0.0-1.1) Eosinophils # (Auto) 0.0 x10^3/uL (0.0-0.7) Basophils # (Auto) 0.0 x10^3/uL (0.0-0.2) Sodium Level 138 mmol/L (136-145) Potassium Level 3.5 mmol/L (3.5-5.1) Chloride Level 101 mmol/L (98-107) Carbon Dioxide Level 23 mmol/L (21-32) Anion Gap 14 (6-14) Blood Urea Nitrogen 16 mg/dL (8-26) Creatinine 1.1 mg/dL (0.7-1.3) Estimated GFR (Cockcroft-Gault) 85.3 BUN/Creatinine Ratio 15 (6-20) Glucose Level 93 mg/dL (70-99) Calcium Level 9.5 mg/dL (8.5-10.1) Total Bilirubin 1.0 mg/dL (0.2-1.0) Aspartate Amino Transferase (AST) 31 U/L (15-37) Alanine Aminotransferase (ALT) 21 U/L (16-63) Alkaline Phosphatase 83 U/L (46-116) Total Protein 8.8 g/dL (6.4-8.2) H Albumin 5.1 g/dL (3.4-5.0) H Albumin/Globulin Ratio 1.4 (1.0-1.7) EKG EKG [] Radiology/Procedures Radiology/Procedures [] Course & Med Decision Making Course & Med Decision Making Pertinent Labs and Imaging studies reviewed. (See chart for details) The patient's labs do show evidence of hemoconcentration. We have given him 1 L normal saline as well as 4 mg of Zofran. I will discharge him a Zofran ODT. He is stable for discharge at this time. [] Dragon Disclaimer Dragon Disclaimer This electronic medical record was generated, in whole or in part, using a voice recognition dictation system. Departure Departure: Impression: Primary Impression: Viral gastroenteritis Disposition: 01 HOME, SELF-CARE Condition: STABLE Referrals: BEVERLY CATES PA-C (PCP) Patient Instructions: Viral Gastroenteritis, [id number] Scripts Ondansetron (ONDANSETRON ODT) 4 Mg Tab.rapdis 1 TAB PO PRN Q6-8HRS PRN for VOMITING, #16 TAB Prov: MANUEL BRADFORD DO 10/27/18 MANUEL BRADFORD DO Oct 27, 2018 22:17
== END 2018-10-27 22:23 | disposition home or self-care (01) ==
LOC: ER 21:14
DX: A08.4 Viral intestinal infection, unspecified (principal); R11.2 Nausea with vomiting, unspecified
CPT/HCPCS: 36415; 80053; 85025; 96361; 96374; 99283; J2405; J7030